=== PATIENT | female | born 1950 | race Caucasian/White ===

== ENCOUNTER → 2020-08-13 09:35 | Outpatient (BNVA) | payer MEDICARE, SELFPAY | PROVIDERS: PCP Family Medicine; Visit Provider Orthopaedic Surgery | DX: M65.331 Trigger finger, right middle finger (principal) | CPT/HCPCS: 99202 ==

== ENCOUNTER 2024-07-23 08:59 | Day surgery (SDC) | payer MEDICARE, SELFPAY ==
--- OUTSIDE RECORDS SUMMARY | 2024-06-19 11:36 | XMS_ITS | Clinical Summary ---
Author Organization [facility] Address [address] [place] [address] Phone Care Team Providers Care Territory Sales Manager Medical Name Role Phone Luz Samuel MD Primary Care Provider [phone] Allergies Active Allergy Reactions Criticality Noted Date Comments Erythromycin 05/02/2012 Meperidine 05/23/2023 Medications amoxicillin (AMOXIL) 500 mg capsule Take 1 capsule (500 mg total) by mouth. 03/20/2024 Active ascorbic acid (VITAMIN C) 250 mg tablet Take 1 tablet (250 mg total) by mouth 1 (one) time each day. Active Lumigan 0.01 % ophthalmic drops INSTILL ONE DROP IN LEFT EYE EVERY NIGHT Active chlorthalidone (HYGROTON) 25 mg tablet Take 1 tablet (25 mg total) by mouth 1 (one) time each day. for 90 days 01/17/2024 Active brimonidine (ALPHAGAN) 0.2 % ophthalmic solution place 1 drop into the left eye 2 times a day. 12/26/2023 Active dorzolamide-braeden oloL (COSOPT) 22.3-6.8 mg/mL ophthalmic solution instill one drop in left eye twice a day 04/09/2024 Active levothyroxine (SYNTHROID, LEVOTHROID) 88 mcg tablet Take 1 tablet (88 mcg total) by mouth 1 (one) time each day. for 90 days 03/27/2024 Active losartan (COZAAR) 25 mg tablet Take 1 tablet (25 mg total) by mouth 1 (one) time each day. for 90 days Active rosuvastatin (CRESTOR) 10 mg tablet Take 1 tablet (10 mg total) by mouth 1 (one) time each day. Active timolol (TIMOPTIC) 0.25 % ophthalmic solution 1 drop. Active coenzyme Q10 400 mg capsule Take by mouth. Active Active Problems Problem Noted Date Diagnosed Date Epidermal inclusion cyst 05/02/2012 Hyperthyroidism 05/02/2012 Solar lentigo 05/02/2012 Encounters Date Type Department Care Team Description 04/26/2024 4:00 PM EST Office Visit Orthopedic Surgery - [facility] [address] [place] [address] Kaylee Thomas, LEILA Trigger finger of right thumb (Primary Dx) from Last 3 Months Immunizations Name Administration Dates Next Due Influenza Quadravalent, 0.5m l (Fluad) 65yo and older 12/24/2022 Influenza Quadravalent, 0.5m l (Fluzone High-dose) 65yo and older 12/26/2020 Influenza Quadrivalent, 0.5m l, preservative free (Fluarix; FluLaval; Fluzone) ages 6mo and older (Afluria) 3yo and older 05/17/2015 Influenza trivalent, 0.5mL ( Fluzone High-dose) 65yo and older 11/28/2023,12/30/2018,02/05/2016 Influenza trivalent, with pr eservative (Fluzone; Afluria) 6mo and older 01/11/2022 Pfizer (ages 12 & older) Bivalent, COVID-19 01/09 Pneumococcal conjugate 13 va lent (Prevnar 13, PCV13) 2mo and older 02/07/2013 Pneumococcal polysaccharide 23 valent (Pneumovax 23) 2yo and older 12/26/2020 RSV, bivalent, protein subun it RSVpreF, 0.5mL, Preservative Free (Arexvy) 60yo and older 01/21/2023 Medical History Medical History Date Comments Solar lentigo 05/02/2012 DX:Solar lentigo Epidermal inclusion cyst 05/02/2012 DX:Epid ermal inclusion cyst History of exploratory laparotomy DX:History of exploratory laparotomy History of appendectomy DX:Histo ry of appendectomy History of tonsillectomy DX:Hist ory of tonsillectomy Strabismus DX:Strabismus Social History Tobacco Use Types Packs/Day Years Used Date Smoking Tobacco: Former Cigarettes Smokeless Tobacco: Never Alcohol Use Standard Drinks/Week Comments Yes 2 (1 standard drink = 0.6 oz pur e alcohol) Comments Unknown Sex and Gender Information Value Date Recorded Sex Assigned at Not on file Legal Sex Female 8:57 PM EST Gender Identity Not on file Sexual Orientation Not on file Obstetrics History Last Filed Vital Signs Vital Sign Reading Time Taken Comments Blood Pressure - - Pulse - - Temperature - - Respiratory Rate - - Oxygen Saturation - - Inhaled Oxygen Concentration - - Weight 50.8 kg (112 lb) 12/14/2023 3:09 PM EDT Height 149.9 cm (4' 11 ) 12/14/2023 3:09 PM EDT Body Mass Index 22.62 12/14/2023 3:09 PM EDT Plan of Treatment Health Maintenance Due Date Last Done Comments Breast Cancer Screening 1950 DTaP,Tdap,and Td Vaccines (1 - Tdap) 1970 Zoster Vaccines (1 of 2) 1970 Colorectal Cancer Screening: Colonoscopy 05/06/2023 Depression Screening 05/06/2023 Falls Risk Assessment 05/06/2023 Hepatitis C Screening 05/06/2023 Medicare Annual Wellness Visit 05/06/2023 Osteoporosis Screening (Bone Density Screening) 05/06/2023 Social Influencers of Health Screening 05/06/2023 Pneumococcal Vaccine: 50+ Years Completed 12/26/2020, 02/07/2013 RSV Immunization Patients 60+ Years Old Completed 01/21/2023 Influenza Vaccine Completed 11/28/2023, , 01/11/2022, Additional history exists COVID-19 Vaccine Completed 03/09/2024, 02/2024, 12/24/2022, Additional history exists HIB Vaccines Aged Out No longer eligi ble based on patient's age to complete this topic HPV Vaccines Aged Out No longer eligi ble based on patient's age to complete this topic Hepatitis A Vaccines Aged Out No long er eligible based on patient's age to complete this topic Hepatitis B Vaccines Aged Out No long er eligible based on patient's age to complete this topic IPV Vaccines Aged Out No longer eligi ble based on patient's age to complete this topic MMR Vaccines Aged Out No longer eligi ble based on patient's age to complete this topic Meningococcal ACWY Vaccine Aged Out N o longer eligible based on patient's age to complete this topic Meningococcal B Vacine Aged Out No lo nger eligible based on patient's age to complete this topic RSV Immunization Patients Under 20 months Aged Out No longer eligible based on patient's age to complete this topic Varicella Vaccines Aged Out No longer eligible based on patient's age to complete this topic Procedures Procedure Name Priority Date/Time Associated Diagnosis Comments HAND/UPPER EXTREMITY ARTHROCENTESIS Routine 04/26/2024 4:00 PM EST Trigger finger of right thumb from Last 3 Months Results * Hand / UE Inj/Asp (04/26/2024 4:00 PM EST) Narrative Kaylee Thomas PA - 04/26/2024 4:00 PM EST LEILA Miranda ? 04/26/2024 ??4:37 PM Hand / UE Inj/Asp for trigger finger Indications: pain Details: 25 G needle, volar approach Medications: 40 mg triamcinolone acetonide 40 mg/mL; 0.5 mL lidocaine 1 % Informed Consent: ??Relevant images/test results available and reviewed: yes ?Health status cleared: ??Yes ??Procedure/treatment, purpose, treatment alternatives, risks/potential complications and benefits explained: yes ?Risk/complications/benefits details: ??Risks of infection, thinning of the skin and temporary skin discoloration discussed. ??Discussed risks of temporary increased pain after injection and swelling and mild redness at injection site for couple days. ??Explained occasionally cortisone injection can cause facial flushing temporarily. ??Benefits pain management. ??For postop injection pain ice, Tylenol and/or NSAIDs if patient can take ??Patient questions answered: yes ?Patient agrees, verbalizes understanding, and wants to proceed: yes ?Consent given by: ??Parent and patient ??Informed consent discussion completed by Physician/ROD with patient: ?? Verbal ??Pre-procedure timeout performed: yes ?? us Kaylee DEE IN CLINIC/BEDSIDE ORDERABLES Final Result from Last 3 Months Insurance BLUE CROSS - [place] MEDICARE ADVANTAGE Care Teams Territory Sales Manager Medical Relationship Specialty Start Date End Date Luz Samuel MD [facility] [address] [place] [address] PCP - General 02/17/12
[2024-07-20 08:01] VITALS: BMI 24.0
[2024-07-23 10:05] VITALS: BP 128/65; PULSE 62; RESP 16; TEMP 37.1; O2SAT 100
[2024-07-23] MEDS: Lactated Ringers 500 ML 50 ML IV (10:14)
[2024-07-23] MEDS: Tetracaine HCl/PF 0.5% Oph Sol 4 ML DROPS 1 DROP EYE-LEFT (10:14)
[2024-07-23] MEDS: Cyclopentolate 1 % Ophth Sol 2 ML DRPBTL 1 DROP EYE-LEFT ×3 (10:15→10:24)
[2024-07-23] MEDS: Tropicamide 1 % Ophth Sol 3 ML BTL 1 DROP EYE-LEFT ×3 (10:16→10:25)
[2024-07-23] MEDS: Ketorolac Tromethamine 0.5% Op 5 ML DROPS 1 DROP EYE-LEFT ×3 (10:17→10:26)
[2024-07-23] MEDS: Phenylephrine HCL 2.5% Oph SoL 2 ML BOTTLE 1 DROP EYE-LEFT ×3 (10:18→10:27)
--- NOTE | 2024-07-23 10:19 | HO.ANESPROP2 ---
HPI - Anesthesia Eval Consult details Narrative: 74 yo F presenting for left cataract extraction IOL insertion PMFSH Active Problems Active Problems: All Active Problems Trigger finger, right middle finger (Acute) Past Medical History Medical History (Updated 07/20/24 @ 07:52 by Carola Romero RN) Tobacco use Rheumatic fever Right shoulder pain Metacarpophalangeal joint pain Osteopenia Trigger finger DJD (degenerative joint disease) Ocular hypertension Thyroid disease Family History Family history of problems with anesthesia: No Surgical History Surgical History (Updated 07/20/24 @ 07:52 by Carola Romero RN) History of intraocular lens implant Hx of eye surgery History of strabismus surgery Hx of tonsillectomy Hx of appendectomy History of Problems with Anesthesia: No Social History Social History (Updated 08/13/20 @ 09:45 by LAURA Bautista) Alcohol intake: never Patient Tobacco Use Status: Current everyday Tobacco user Tobacco use type: Cigarette Cigarettes Per Day: 10 Are you DNR?: No Advance Directives: No Advance Directives Information Provided: Yes Advance Directives on File: No Patient : No : No Current occupation: right handed Meds Allergies Allergy/AdvReac Type Severity Reaction Status Date / Time brimonidine [Combigan] Allergy Unknown itching, Verified 08/13/20 09:45 chandra eyes clarithromycin [Biaxin] Allergy Unknown severe Verified 08/13/20 09:45 vomiting meperidine [Demerol] Allergy Unknown vomiting Verified 08/13/20 09:45 timolol [Combigan] Allergy Unknown itching, Verified 08/13/20 09:45 chandra eyes Erythromycin Allergy Unknown severe Uncoded 08/13/20 09:45 vomiting Active Medications: Current Medications Cyclopentolate HCl (Cyclopentolate 1 % Ophth Anna 2 Ml Drpbtl) 1 drop EYE-LEFT Q5M MILAN Stop: 07/23/24 10:26 Last Admin: 07/23/24 10:15 Dose: 1 drop Lactated Ringer's (Lr) 500 mls @ 50 mls/hr IV .Q10H MILAN Stop: 07/23/24 20:14 Last Admin: 07/23/24 10:14 Dose: 50 mls/hr Ketorolac Tromethamine (Ketorolac Tromethamine 0.5% Op 5 Ml Drops) 1 drop EYE-LEFT Q5M MILAN Stop: 07/23/24 10:26 Last Admin: 07/23/24 10:17 Dose: 1 drop Phenylephrine HCl (Phenylephrine Hcl 2.5% Oph Anna 2 Ml Bottle) 1 drop EYE-LEFT Q5M MILAN Stop: 07/23/24 10:26 Last Admin: 07/23/24 10:18 Dose: 1 drop Povidone Iodine (Povidone Iodine 5 % Ophth Soln 30 Ml Bottle) 1 appl EYE-LEFT PREOP PRN PRN Reason: Pre-Op Surgical Implant Prophy Tropicamide (Tropicamide 1 % Ophth Anna 3 Ml Btl) 1 drop EYE-LEFT Q5M [facility] Stop: 07/23/24 10:26 Last Admin: 07/23/24 10:16 Dose: 1 drop Home Medications ?Medication ?Instructions ?Recorded ?Confirmed ?Last Taken ?Type bimatoprost 0.01 % eye drops 1 drp ophthalmic (eye) BEDTIME 08/13/20 07/20/24 Unknown History ascorbic acid (vitamin C) 250 mg 250 mg PO DAILY 07/20/24 07/20/24 Unknown History tablet (Vitamin C) aspirin 325 mg tablet 325 mg PO DAILY 07/20/24 07/20/24 Unknown History chlorthalidone 25 mg tablet 25 mg PO QNOON 07/20/24 07/20/24 Unknown History coenzyme Q10 300 mg capsule (Co 300 mg PO DAILY 07/20/24 07/20/24 Unknown History Q-10) dorzolamide 22.3 mg-timolol 6.8 1 drp BID 07/20/24 07/20/24 Unknown History mg/mL eye drops lactobacillus combination no.4 3 3,000 mmu cells PO DAILY 07/20/24 07/20/24 Unknown History billion cell capsule (Probiotic) levothyroxine 88 mcg tablet 88 mcg PO DAILY 07/20/24 07/20/24 07/23/24 History losartan 100 mg tablet 100 mg PO BEDTIME 07/20/24 07/20/24 Unknown History multivitamin 1 tab PO DAILY 07/20/24 07/20/24 Unknown History omega 5-qao-zev-fish oil 1,200 mg 1 cap PO DAILY 07/20/24 07/20/24 Unknown History (144 mg-216 mg) capsule (Fish Oil) rosuvastatin 5 mg tablet (Crestor) 5 mg PO 3XW 07/20/24 07/20/24 Unknown History Exam Exam Date and Time: 07/23/24 1010 Height,Weight and Vital Signs: Height 4 ft 11 in Weight 53.977 kg Last Vital Signs Temp 98.7 F 07/23/24 10:05 Pulse 62 07/23/24 10:05 Resp 16 07/23/24 10:05 BP 128/65 07/23/24 10:05 Pulse Ox 100 07/23/24 10:05 O2 Del Method Room Air 07/23/24 10:05 Airway Mallampati Class: I TM Dist: >3cm Neck ROM: Full Loose/Missing/Broken Teeth: No (patient denies any loose or broken teeth) Heart: S1S2 Lungs: CTAB Assessment and Plan Assessment Anesthesia Assessment: Anesthesia Plan Discussed and Chart Reviewed Final Anesthetic Review Family History of Problems with Anesthesia: No History of Problems with Anesthesia: No NPO: Yes ASA Class: II Final Preanesthetic Review: No Changes in Pt Med Stat, Meds/Allgs Chart Reviewed, Consent Obtained/Reviewed and Anes Risks/Benef Reviewed Patient Risk: Low Procedure Risk: Low Anesthetic Plan Anesthetic Plan: MAC: and Agree w/ Assess. and Plan Disposition: Standard PACU
--- NOTE | 2024-07-23 10:54 | MHC.SHP ---
Pre-Procedural Eval Section A - 24 Hr Update-Section A only Date of Service: 07/23/24 The patient is an INPATIENT: No Changes since office visit: No Cold of Flu in the past 2 weeks, No New Medical Problems, No Changes in Medication and No Patient answered all questions The patient has been examined within 24 hours of the surgical procedure. The History & Physical has been completed within 30 days and I have reviewed it.: Yes Section B - Complete if H&P > 30 days Chief Complaint: Age-related nuclear cataract, left eye Allergies: Allergies Allergy/AdvReac Type Severity Reaction Status Date / Time brimonidine [Combigan] Allergy Unknown itching, Verified 08/13/20 09:45 chandra eyes clarithromycin [Biaxin] Allergy Unknown severe Verified 08/13/20 09:45 vomiting meperidine [Demerol] Allergy Unknown vomiting Verified 08/13/20 09:45 timolol [Combigan] Allergy Unknown itching, Verified 08/13/20 09:45 chandra eyes Erythromycin Allergy Unknown severe Uncoded 08/13/20 09:45 vomiting Plan Diagnosis/Plan: Unchanged I have reviewed the history and physical and performed a pertinent physical examination on my patient. No changes have occurred unless specified. Time Spent With Patient Time: Total time managing care of this patient today ____ minutes.
--- NOTE | 2024-07-23 10:55 | HO.PNOPHT ---
Ophthalmology Procedure Procedure Date of Service: 07/23/24 Ophthalmology Viscoelastic: Healon Duet Dual Pack Pro Ophthalmology Lenses: IOL Acrysof MP - MA60AC (20.5) Procedure Notes: PREOPERATIVE DIAGNOSIS: Decreased visual acuity left eye secondary to cataract POSTOPERATIVE DIAGNOSIS: Same PROCEDURE: Left cataract extraction with intraocular lens insertion SURGEON: Sushil Mckeon M.D. ANESTHESIA: Topical/MAC ESTIMATED BLOOD LOSS: None COMPLICATIONS: None After obtaining informed consent, the patient was brought to the operation room suite and placed in the supine position. After adequate sedation per anesthesia, topical drops of Tetracaine were given to the left eye. The eye was then prepped and draped in the usual sterile fashion. The operating room microscope was then positioned over the operative eye and a lid speculum placed. A paracentesis was created. Viscoelastic was then instilled into the anterior chamber. A three plane incision was then created temporally, utilizing a 2.85 mm keratome. Capsulotomy forceps were then utilized to create a circular tear capsulotomy. Hydrodissection and hydrodelineation were carried out until adequate mobilization of the nucleus occurred. Phacoemulsification was then utilized to remove the dense central nucleus followed by removal of the cortical material utilizing the automated aspiration irrigation unit. Viscoat elastic was instilled into the posterior capsular bag followed by placement of a posterior chamber intraocular lens without difficulty. The residual Viscoat elastic was then removed utilizing the automated IA machine. The wound was check and found to be watertight. The patient tolerated the procedure well and the lid speculum was removed. Intracameral injection of Vigamox 0.1 mL followed by a subtenon injection of Kenalog-40 0.2 mL were administered. The patient will be seen in the a.m.
[2024-07-23 11:18] VITALS: BP 132/81; PULSE 58; RESP 16; TEMP 36.2; O2SAT 99
== END 2024-07-23 11:36 | disposition home or self-care (01) ==
PROVIDERS: PCP Family Medicine; Visit Provider Ophthalmology
PROC: (CPT 66985; principal; 2024-07-23 12:00)
DX: H25.12 Age-related nuclear cataract, left eye (principal); Z83.511 Family history of glaucoma; H54.7 Unspecified visual loss; H40.053 Ocular hypertension, bilateral; H35.033 Hypertensive retinopathy, bilateral; H18.413 Arcus senilis, bilateral; H11.153 Pinguecula, bilateral; E06.3 Autoimmune thyroiditis; E78.5 Hyperlipidemia, unspecified; I10 Essential (primary) hypertension; M81.0 Age-related osteoporosis without current pathological fracture; Z79.82 Long term (current) use of aspirin; Z79.899 Other long term (current) drug therapy; Z88.1 Allergy status to other antibiotic agents; Z88.5 Allergy status to narcotic agent; Z87.891 Personal history of nicotine dependence
CPT/HCPCS: 66984; J2250; J3010; J3301; V2630

== ENCOUNTER 2024-08-06 07:44 | Day surgery (SDC) | payer MEDICARE, SELFPAY ==
--- NOTE | 2024-08-02 14:39 | P.CONAN_ITS ---
Documented by User: Chayo Guevara NP 08/02/24 14:40 HPI - Anesthesia Eval Consult details Narrative: 74yo F for Right Cataract Extraction IOL Insertion Left eye 07/23/24: Fent 50, Midaz 2 PMFSH Active Problems Active Problems: All Active Problems Trigger finger, right middle finger (Acute) Past Medical History Medical History (Updated 07/20/24 @ 07:52 by Carola Romero RN) Tobacco use Rheumatic fever Right shoulder pain Metacarpophalangeal joint pain Osteopenia Trigger finger DJD (degenerative joint disease) Ocular hypertension Thyroid disease Family History Family history of problems with anesthesia: No Surgical History Surgical History (Updated 07/20/24 @ 07:52 by Carola Romero RN) History of intraocular lens implant Hx of eye surgery History of strabismus surgery Hx of tonsillectomy Hx of appendectomy History of Problems with Anesthesia: No Social History Social History (Updated 08/13/20 @ 09:45 by LAURA Bautista) Alcohol intake: never Patient Tobacco Use Status: Current everyday Tobacco user Tobacco use type: Cigarette Cigarettes Per Day: 10 Are you DNR?: No Advance Directives: No Advance Directives Information Provided: Yes Advance Directives on File: No Patient : No : No Current occupation: right handed Meds Allergies Allergy/AdvReac Type Severity Reaction Status Date / Time brimonidine [Combigan] Allergy Unknown itching, Verified 08/13/20 09:45 chandra eyes clarithromycin [Biaxin] Allergy Unknown severe Verified 08/13/20 09:45 vomiting meperidine [Demerol] Allergy Unknown vomiting Verified 08/13/20 09:45 timolol [Combigan] Allergy Unknown itching, Verified 08/13/20 09:45 chandra eyes Erythromycin Allergy Unknown severe Uncoded 08/13/20 09:45 vomiting Home Medications ?Medication ?Instructions ?Recorded ?Confirmed ?Last Taken ?Type bimatoprost 0.01 % eye drops 1 drp ophthalmic (eye) BEDTIME 08/13/20 07/20/24 08/05/24 History ascorbic acid (vitamin C) 250 mg 250 mg PO DAILY 07/20/24 07/20/24 08/05/24 History tablet (Vitamin C) aspirin 325 mg tablet 325 mg PO DAILY 07/20/24 07/20/24 08/05/24 History chlorthalidone 25 mg tablet 25 mg PO QNOON 07/20/24 07/20/24 08/05/24 History coenzyme Q10 300 mg capsule (Co 300 mg PO DAILY 07/20/24 07/20/24 08/05/24 History Q-10) dorzolamide 22.3 mg-timolol 6.8 1 drp BID 07/20/24 07/20/24 08/05/24 History mg/mL eye drops lactobacillus combination no.4 3 3,000 mmu cells PO DAILY 07/20/24 07/20/24 08/05/24 History billion cell capsule (Probiotic) levothyroxine 88 mcg tablet 88 mcg PO DAILY 07/20/24 07/20/24 08/06/24 History losartan 100 mg tablet 100 mg PO BEDTIME 07/20/24 07/20/24 08/05/24 History multivitamin 1 tab PO DAILY 07/20/24 07/20/24 08/05/24 History omega 5-jbh-jkf-fish oil 1,200 mg 1 cap PO DAILY 07/20/24 07/20/24 08/05/24 History (144 mg-216 mg) capsule (Fish Oil) rosuvastatin 5 mg tablet (Crestor) 5 mg PO 3XW 07/20/24 07/20/24 08/03/24 History Exam Height,Weight and Vital Signs: Weight 53.977 kg Assessment and Plan Assessment Anesthesia Assessment: Chart Reviewed Final Anesthetic Review Family History of Problems with Anesthesia: No History of Problems with Anesthesia: No Documented by User: Violeta Parekh MD 08/06/24 08:26 [facility] Past Medical History Medical History (Updated 07/20/24 @ 07:52 by Carola Romero RN) Tobacco use Rheumatic fever Right shoulder pain Metacarpophalangeal joint pain Osteopenia Trigger finger DJD (degenerative joint disease) Ocular hypertension Thyroid disease Surgical History Surgical History (Updated 07/20/24 @ 07:52 by Carola Romero RN) History of intraocular lens implant Hx of eye surgery History of strabismus surgery Hx of tonsillectomy Hx of appendectomy Social History Social History (Updated 08/13/20 @ 09:45 by LAURA Bautista) Alcohol intake: never Patient Tobacco Use Status: Current everyday Tobacco user Tobacco use type: Cigarette Cigarettes Per Day: 10 Are you DNR?: No Advance Directives: No Advance Directives Information Provided: Yes Advance Directives on File: No Patient : No : No Current occupation: right handed Meds Allergies Allergy/AdvReac Type Severity Reaction Status Date / Time brimonidine [Combigan] Allergy Unknown itching, Verified 08/13/20 09:45 chandra eyes clarithromycin [Biaxin] Allergy Unknown severe Verified 08/13/20 09:45 vomiting meperidine [Demerol] Allergy Unknown vomiting Verified 08/13/20 09:45 timolol [Combigan] Allergy Unknown itching, Verified 08/13/20 09:45 chandra eyes Erythromycin Allergy Unknown severe Uncoded 08/13/20 09:45 vomiting Home Medications ?Medication ?Instructions ?Recorded ?Confirmed ?Last Taken ?Type bimatoprost 0.01 % eye drops 1 drp ophthalmic (eye) BEDTIME 08/13/20 07/20/24 08/05/24 History ascorbic acid (vitamin C) 250 mg 250 mg PO DAILY 07/20/24 07/20/24 08/05/24 History tablet (Vitamin C) aspirin 325 mg tablet 325 mg PO DAILY 07/20/24 07/20/24 08/05/24 History chlorthalidone 25 mg tablet 25 mg PO QNOON 07/20/24 07/20/24 08/05/24 History coenzyme Q10 300 mg capsule (Co 300 mg PO DAILY 07/20/24 07/20/24 08/05/24 History Q-10) dorzolamide 22.3 mg-timolol 6.8 1 drp BID 07/20/24 07/20/24 08/05/24 History mg/mL eye drops lactobacillus combination no.4 3 3,000 mmu cells PO DAILY 07/20/24 07/20/24 08/05/24 History billion cell capsule (Probiotic) levothyroxine 88 mcg tablet 88 mcg PO DAILY 07/20/24 07/20/24 08/06/24 History losartan 100 mg tablet 100 mg PO BEDTIME 07/20/24 07/20/24 08/05/24 History multivitamin 1 tab PO DAILY 07/20/24 07/20/24 08/05/24 History omega 4-nwh-qmu-fish oil 1,200 mg 1 cap PO DAILY 07/20/24 07/20/24 08/05/24 History (144 mg-216 mg) capsule (Fish Oil) rosuvastatin 5 mg tablet (Crestor) 5 mg PO 3XW 07/20/24 07/20/24 08/03/24 History Exam Airway Mallampati Class: II (implants all over) TM Dist: >3cm Neck ROM: Full Heart: rrr Lungs: cta Assessment and Plan Assessment Anesthesia Assessment: Anesthesia Plan Discussed Final Anesthetic Review NPO: Yes ASA Class: II Final Preanesthetic Review: No Changes in Pt Med Stat, Meds/Allgs Chart Reviewed and Consent Obtained/Reviewed Patient Risk: Low Procedure Risk: Low Anesthetic Plan Anesthetic Plan: MAC: Disposition: Standard PACU
[2024-08-06 08:16] VITALS: BMI 25.1
[2024-08-06 08:17] VITALS: BP 117/60; PULSE 59; RESP 16; TEMP 36.9; O2SAT 98
[2024-08-06] MEDS: Tetracaine HCl/PF 0.5% Oph Sol 4 ML DROPS 1 DROP EYE-RIGHT (08:18)
[2024-08-06] MEDS: Cyclopentolate 1 % Ophth Sol 2 ML DRPBTL 1 DROP EYE-RIGHT ×3 (08:20→08:33)
[2024-08-06] MEDS: Lactated Ringers 500 ML 50 ML IV (08:24)
[2024-08-06] MEDS: Tropicamide 1 % Ophth Sol 3 ML BTL 1 DROP EYE-RIGHT ×3 (08:25→08:34)
[2024-08-06] MEDS: Ketorolac Tromethamine 0.5% Op 5 ML DROPS 1 DROP EYE-RIGHT ×3 (08:26→08:35)
[2024-08-06] MEDS: Phenylephrine HCL 2.5% Oph SoL 2 ML BOTTLE 1 DROP EYE-RIGHT ×3 (08:27→08:36)
--- NOTE | 2024-08-06 09:15 | MHC.SHP ---
Pre-Procedural Eval Section A - 24 Hr Update-Section A only Date of Service: 08/06/24 The patient is an INPATIENT: No Changes since office visit: No Cold of Flu in the past 2 weeks, No New Medical Problems, No Changes in Medication and No Patient answered all questions The patient has been examined within 24 hours of the surgical procedure. The History & Physical has been completed within 30 days and I have reviewed it.: Yes Section B - Complete if H&P > 30 days Chief Complaint: Age-related nuclear cataract, right eye Allergies: Allergies Allergy/AdvReac Type Severity Reaction Status Date / Time brimonidine [Combigan] Allergy Unknown itching, Verified 08/13/20 09:45 chandra eyes clarithromycin [Biaxin] Allergy Unknown severe Verified 08/13/20 09:45 vomiting meperidine [Demerol] Allergy Unknown vomiting Verified 08/13/20 09:45 timolol [Combigan] Allergy Unknown itching, Verified 08/13/20 09:45 chandra eyes Erythromycin Allergy Unknown severe Uncoded 08/13/20 09:45 vomiting Plan Diagnosis/Plan: Unchanged I have reviewed the history and physical and performed a pertinent physical examination on my patient. No changes have occurred unless specified. Time Spent With Patient Time: Total time managing care of this patient today ____ minutes.
--- NOTE | 2024-08-06 09:16 | P.PCNO_ITS ---
Ophthalmology Procedure Procedure Date of Service: 08/06/24 Ophthalmology Viscoelastic: Healon Duet Dual Pack Pro Ophthalmology Lenses: IOL Acrysof MP - MA60AC (21.5) Procedure Notes: PREOPERATIVE DIAGNOSIS: Decreased visual acuity right eye secondary to cataract POSTOPERATIVE DIAGNOSIS: Same PROCEDURE: Right cataract extraction with intraocular lens insertion SURGEON: Sushil Mckeon M.D. ANESTHESIA: Topical/MAC ESTIMATED BLOOD LOSS: None COMPLICATIONS: None After obtaining informed consent, the patient was brought to the operating room suite and placed in the supine position. After adequate sedation per anesthesia, topical drops of Tetracaine were given to the right eye. The eye was then prepped and draped in the usual sterile fashion. The operating room microscope was then positioned over the operative eye and a lid speculum placed. A paracentesis was created. Viscoelastic was then instilled into the anterior chamber. A three plane incision was then created temporally, utilizing a 2.85 mm keratome. Capsulotomy forceps were then utilized to create a circular tear capsulotomy. Hydrodissection and hydrodelineation were carried out until adequate mobilization of the nucleus occurred. Phacoemulsification was then utilized to remove the dense central nu cleus followed by removal of the cortical material utilizing the automated aspiration irrigation unit. Viscoelastic was instilled into the posterior capsular bag followed by placement of a posterior chamber intraocular lens without difficulty. The residual Viscoelastic was then removed utilizing the automated IA machine. The wound was checked and found to be watertight. The patient tolerated the procedure well and the lid speculum was removed. Intracameral injection of Vigamox 0.1 mL followed by a subtenon injection of Kenalog-40 0.2 mL were administered. The patient will be seen in the a.m.
[2024-08-06 09:44] VITALS: BP 132/59; PULSE 55; RESP 16; TEMP 36.5; O2SAT 99
== END 2024-08-06 09:54 | disposition home or self-care (01) ==
PROVIDERS: PCP Family Medicine; Visit Provider Ophthalmology
PROC: (CPT 66985; principal; 2024-08-06 09:30)
DX: H25.11 Age-related nuclear cataract, right eye (principal); H54.7 Unspecified visual loss; Z83.511 Family history of glaucoma; H02.411 Mechanical ptosis of right eyelid; H40.053 Ocular hypertension, bilateral; H35.033 Hypertensive retinopathy, bilateral; H18.413 Arcus senilis, bilateral; I10 Essential (primary) hypertension; E03.9 Hypothyroidism, unspecified; Z79.899 Other long term (current) drug therapy; Z88.1 Allergy status to other antibiotic agents; Z88.5 Allergy status to narcotic agent; Z87.891 Personal history of nicotine dependence
CPT/HCPCS: 66984; J2250; J3010; J3301; V2630

== ENCOUNTER 2024-08-13 06:12 | Day surgery (SDC) | payer MEDICARE, SELFPAY ==
[2024-08-13 06:54] VITALS: BP 139/73; PULSE 78; RESP 16; TEMP 36.3; O2SAT 99; BMI 23.8
--- NOTE | 2024-08-13 07:37 | MHC.SHP ---
Pre-Procedural Eval Section A - 24 Hr Update-Section A only Date of Service: 08/13/24 The patient is an INPATIENT: No Changes since office visit: No Cold of Flu in the past 2 weeks, No New Medical Problems, No Changes in Medication and No Patient answered all questions The patient has been examined within 24 hours of the surgical procedure. The History & Physical has been completed within 30 days and I have reviewed it.: Yes Section B - Complete if H&P > 30 days Chief Complaint: Age-related nuclear cataract, right eye Allergies: Allergies Allergy/AdvReac Type Severity Reaction Status Date / Time brimonidine [Combigan] Allergy Unknown itching, Verified 08/13/20 09:45 chandra eyes clarithromycin [Biaxin] Allergy Unknown severe Verified 08/13/20 09:45 vomiting meperidine [Demerol] Allergy Unknown vomiting Verified 08/13/20 09:45 timolol [Combigan] Allergy Unknown itching, Verified 08/13/20 09:45 chandra eyes Erythromycin Allergy Unknown severe Uncoded 08/13/20 09:45 vomiting Plan Diagnosis/Plan: Unchanged I have reviewed the history and physical and performed a pertinent physical examination on my patient. No changes have occurred unless specified. Time Spent With Patient Time: Total time managing care of this patient today ____ minutes.
--- NOTE | 2024-08-13 07:38 | HO.PNOPHT ---
Ophthalmology Procedure Procedure Date of Service: 08/13/24 Ophthalmology Viscoelastic: Not Applicable Ophthalmology Lenses: Not Applicable Procedure Notes: IOL repositioningof Right eye same Anes; MAC with topical The eye was prepped and draped in the usual technique. The lid speciulum was placed in thye right eye. The microscope was positioned over the right eye.Lidocaine MPF 0.2 cc intracameal followed by repostion of IOL. Patient valsalva and IOL remained in good position. Vigamox 0.1 cc was instilled intracamal. Patient tolerated the procedure and will be seen in f/u.
[2024-08-13 08:05] VITALS: BP 106/60; PULSE 68; RESP 18; TEMP 36.1; O2SAT 97
--- NOTE | 2024-08-13 08:23 | HO.ANESPROP2 ---
[facility] Active Problems Active Problems: All Active Problems Trigger finger, right middle finger (Acute) Past Medical History Medical History Tobacco use Rheumatic fever Right shoulder pain Metacarpophalangeal joint pain Osteopenia Trigger finger DJD (degenerative joint disease) Ocular hypertension Thyroid disease Functional capacity: independent ambulation Patient : No Family History Family history of problems with anesthesia: No Surgical History Surgical History History of intraocular lens implant Hx of eye surgery History of strabismus surgery Hx of tonsillectomy Hx of appendectomy History of Problems with Anesthesia: No Social History Social History Alcohol intake: never Patient Tobacco Use Status: Never used Tobacco Tobacco use type: Cigarette Cigarettes Per Day: 10 Use of substances other than those prescribed or required for medical reasons: No Are you DNR?: No Advance Directives: No Advance Directives Information Provided: Yes Current occupation: right handed Meds Allergies Allergy/AdvReac Type Severity Reaction Status Date / Time brimonidine [Combigan] Allergy Unknown itching, Verified 08/13/20 09:45 chandra eyes clarithromycin [Biaxin] Allergy Unknown severe Verified 08/13/20 09:45 vomiting meperidine [Demerol] Allergy Unknown vomiting Verified 08/13/20 09:45 timolol [Combigan] Allergy Unknown itching, Verified 08/13/20 09:45 chandra eyes Erythromycin Allergy Unknown severe Uncoded 08/13/20 09:45 vomiting Home Medications ?Medication ?Instructions ?Recorded ?Confirmed ?Last Taken ?Type bimatoprost 0.01 % eye drops 1 drp ophthalmic (eye) BEDTIME 08/13/20 07/20/24 08/05/24 History ascorbic acid (vitamin C) 250 mg 250 mg PO DAILY 07/20/24 07/20/24 08/05/24 History tablet (Vitamin C) aspirin 325 mg tablet 325 mg PO DAILY 07/20/24 07/20/24 08/05/24 History chlorthalidone 25 mg tablet 25 mg PO QNOON 07/20/24 07/20/24 08/05/24 History coenzyme Q10 300 mg capsule (Co 300 mg PO DAILY 07/20/24 07/20/24 08/05/24 History Q-10) dorzolamide 22.3 mg-timolol 6.8 1 drp BID 07/20/24 07/20/24 08/05/24 History mg/mL eye drops lactobacillus combination no.4 3 3,000 mmu cells PO DAILY 07/20/24 07/20/24 08/05/24 History billion cell capsule (Probiotic) levothyroxine 88 mcg tablet 88 mcg PO DAILY 07/20/24 07/20/24 08/06/24 History losartan 100 mg tablet 100 mg PO BEDTIME 07/20/24 07/20/24 08/05/24 History multivitamin 1 tab PO DAILY 07/20/24 07/20/24 08/05/24 History omega 5-jdi-snm-fish oil 1,200 mg 1 cap PO DAILY 07/20/24 07/20/24 08/05/24 History (144 mg-216 mg) capsule (Fish Oil) rosuvastatin 5 mg tablet (Crestor) 5 mg PO 3XW 07/20/24 07/20/24 08/03/24 History Exam Height,Weight and Vital Signs: Height 4 ft 11 in Weight 53.524 kg Last Vital Signs Temp 97.0 F 08/13/24 08:05 Pulse 68 08/13/24 08:05 Resp 18 08/13/24 08:05 BP 106/60 08/13/24 08:05 Pulse Ox 97 08/13/24 08:05 O2 Del Method Room Air 08/13/24 08:05 Airway Mallampati Class: II TM Dist: >3cm Neck ROM: Full Heart: RRR Lungs: CTA Assessment and Plan Assessment Anesthesia Assessment: Anesthesia Plan Discussed Final Anesthetic Review Family History of Problems with Anesthesia: No History of Problems with Anesthesia: No NPO: Yes ASA Class: II Final Preanesthetic Review: Meds/Allgs Chart Reviewed, Consent Obtained/Reviewed and Anes Risks/Benef Reviewed Patient Risk: Low Procedure Risk: Low Anesthetic Plan Anesthetic Plan: MAC: Disposition: Standard PACU
--- NOTE | 2024-08-13 08:47 | HO.POSTANES ---
Post Anesthesia Evaluation Post Anesthesia Evaluation Date of Service: 08/13/24 Vital Signs: Vital Signs Temp Pulse Resp BP Pulse Ox O2 Del Method 08/13/24 08:05 97.0 F 68 18 106/60 97 Room Air 08/13/24 06:54 97.4 F 78 16 139/73 99 Room Air Anesthesia: Monitored Mental Status: Awake Pain Control: Satisfactory Nausea/Vomiting: None Hydration: Adequate Anesthesia-Related Issues: No Anes. Related Issues
== END 2024-08-13 08:09 | disposition home or self-care (01) ==
PROVIDERS: PCP Family Medicine; Visit Provider Ophthalmology
PROC: (CPT 66985; principal; 2024-08-13 07:30)
DX: T85.22XA Displacement of intraocular lens, initial encounter (principal); H53.141 Visual discomfort, right eye; Y77.2 Prosthetic and other implants, materials and accessory ophthalmic devices associated with adverse incidents; H40.053 Ocular hypertension, bilateral; H35.039 Hypertensive retinopathy, unspecified eye; Z83.511 Family history of glaucoma; Z96.1 Presence of intraocular lens; E03.9 Hypothyroidism, unspecified; Z79.899 Other long term (current) drug therapy; Z88.1 Allergy status to other antibiotic agents; Z88.5 Allergy status to narcotic agent; Z87.891 Personal history of nicotine dependence; Z79.82 Long term (current) use of aspirin
CPT/HCPCS: 66825; J2250; J3010